=== PATIENT | male | born 1960 | race African-American/Black ===

== ENCOUNTER 2017-07-10 15:12 | Emergency (ER) | payer OTHER ==
[~2017-07-10] VITALS: Ht 195.6 cm; Wt 90.0 kg
[2017-07-10 15:17] VITALS: BP 132/64; PULSE 68; RESP 12; TEMP 99; O2SAT 99
[2017-07-10] MEDS ORDERED: QUIN5TAB6 PO (15:19)
[2017-07-10] MEDS ORDERED: HUMALOG SQ (15:19)
--- NOTE | 2017-07-10 15:23 | PD ---
HPI . left ear pain x 1 week Chief Complaint: ENT Complaint Time Seen by Provider: 15:23 Travel History International Travel<30 days: No Contact w/Intl Traveler<30days: No Traveled to known affect area: No History of Present Illness HPI 57 yr old male here with c/o left ear pain x 1 week. He says he thinks it may have ear wax or either he has pain from holding his jaw open during a dental procedure last week. He denies any recent illness, fever or chills. PFSH Past Medical History Diabetes: Yes Social History Tobacco Use: No Allergies-Medications (Allergen,Severity, Reaction): Coded Allergies: Shellfish (Verified Allergy, Severe, Anaphylaxis, 07/10/17) Reported Meds & Prescriptions Reported Meds & Active Scripts Active Reported Quinapril (Quinapril HCl) 5 Mg Tab 40 Mg PO DAILY Humalog Inj (Insulin Human Lispro) 1,000 Unit/10 Ml Vial 5-25 Units SQ ACHS Max dose at bedtime:( )units; sugars < 70,(0)units; sugars 150-199,(5)units; sugars 200-249,(10)units; sugars 250-299,(15)units; sugars 300-349,(20)units; sugars more than 349,(25)units. Review of Systems General / Constitutional: No: Fever Eyes: No: Visual changes HENT: Positive: Earache (left), No: Headaches Cardiovascular: No: Chest Pain or Discomfort Respiratory: No: Shortness of Breath Gastrointestinal: No: Abdominal Pain Genitourinary: No: Dysuria Musculoskeletal: No: Pain Skin: No Rash Neurologic: No: Weakness Psychiatric: No: Depression Endocrine: No: Polydipsia Hematologic/Lymphatic: No: Easy Bruising Physical Exam Narrative GENERAL: AAO x 3, no acute distress, Well-nourished, well-developed patient. SKIN: Warm and dry. No visible rashes or bruising. HEAD: Normocephalic and atraumatic. EYES: No scleral icterus. No injection or drainage. ENT: No nasal drainage noted. Mucous membranes pink. Airway patent. TM normal b/ l, no cerumen impaction NECK: Supple, trachea midline. No JVD. CARDIOVASCULAR: Regular rate and rhythm without murmurs, gallops, or rubs. RESPIRATORY: Breath sounds equal bilaterally. No accessory muscle use. No rhonchi or rales. GASTROINTESTINAL: Abdomen soft, non-tender, nondistended. EXTREMITIES: No cyanosis or edema. BACK: No obvious deformity. NEURO: CN II-12 intact, PSYCH: AAO x 3, normal affect. Data Data Last Documented VS Vital Signs Date Time Temp Pulse Resp B/P Pulse Ox O2 Delivery O2 Flow Rate FiO2 07/10/17 15:17 99.0 68 12 132/64 99 MDM Medical Decision Making Medical Screen Exam Complete: Yes Emergency Medical Condition: No Medical Record Reviewed: Yes Differential Diagnosis OM, OE, cerumen impaction Narrative Course A medical screening exam was performed: At the time of evaluation the presenting medical condition was determined not to be of an emergent nature. The patient was given the option of receiving additional care, but declined. Patient was given options for additional community resources from which to obtain care. The Patient Has Been advised to seek medical attention for their presenting complaint. The patient has been advised to return to the ER at any time if an emergent condition develops. Diagnosis Primary Impression: Encounter for medical screening examination Condition: Stable Elvia Myrick Jul 10, 2017 15:23
== END 2017-07-10 15:36 | disposition left against medical advice (07) ==
LOC: NEPK 15:12
DX: H92.02 Otalgia, left ear (principal); E11.9 Type 2 diabetes mellitus without complications; Z79.4 Long term (current) use of insulin; Z79.899 Other long term (current) drug therapy
CPT/HCPCS: 99281